=== PATIENT | male | born 1960 | race Caucasian/White ===

== ENCOUNTER → 2016-07-28 | Day surgery (SDC) | payer BC ==
[~2016-07-28] MED LIST: BUPIVACAINE HCL PF 0.75% 30 ML VIAL ONE; IBUP-232 PO; NAPR220T95 PO; PERC10TA27 PO; PROPOFOL 200 MG/20 ML AMP IV ONE; RANI150T PO; TRIAMCINOLONE ACETONIDE 40 MG/ML VIAL I-ARTICULR ONE
--- NOTE | 2016-08-03 06:22 | M6 ---
cc: PATTI FINCH M.D. DATE 07/28/2016 DATE OF 1960 PROCEDURE Fluoroscopically guided injection bilateral lumbar facet joints (bilateral L3-4, L4-5 and L5-S1 facet joints). History and physical was completed and signed. Consent was signed. Procedure site was marked. Medications were listed and reconciled. Pain score was recorded. Allergies were noted. Time out was taken. Fluoroscopy time was recorded where applicable. Sedation was administered or directed by Dr. Finch. The patient was given oxygen. The patient was monitored by a registered nurse. Total procedure time was greater than 15 minutes. PROCEDURE NOTE IV was started. Blood pressure cuff, pulse oximeter and EKG were applied. The patient was placed in the prone position on a Godfrey table, sedated with small amounts of propofol titrated to effect. Vital signs were monitored and remained stable throughout the procedure. The lumbar area was prepped with alcohol and 10% Betadine solution and draped with sterile drapes. Fluoroscopy was used in a Luis Fernando dog view to clearly visualize the bilateral lumbar facet joints at L3-4, L4-5 and L5-S1. Separate sterile 3-1/2-inch, 25-gauge spinal needles were advanced into these joints under fluoroscopic guidance. There was negative aspiration for blood or any other type of fluid and at each location the patient was given 1 mL of Marcaine 0.75% which contained 10 mg of Kenalog. Following the procedure the patient was taken to the recovery room with stable vital signs, neurologically intact. He will be evaluated immediately and with followup to determine if he has a subjective decrease in his usual pain and a corresponding objective increase his functional capabilities. W. Deshawn Finch MD [facility]/ODALIS /8:59 AM /5:20 AM
== END | disposition home or self-care (01) ==
LOC: PHSDC 07:01
PROVIDERS: ATTEND Pain Medicine Interventional Pain Medicine
DX: M54.5 Low back pain (principal)
CPT/HCPCS: 64493; 64494; 64495; 99152; J3301

== ENCOUNTER → 2016-08-26 | Day surgery (SDC) | payer BC ==
[~2016-08-26] MED LIST changes: +LACTATED RINGER'S 1000 ML INJ 1,000 ML ONE; +LIDOCAINE 1.5%/EPINEPHrine 1:200,000 PF SOLN 30 ML AMP ONE; -PROPOFOL 200 MG/20 ML AMP IV ONE; -TRIAMCINOLONE ACETONIDE 40 MG/ML VIAL I-ARTICULR ONE; +ceFAZolin 2 GM PREMIX 50 ML ONE
== END | disposition home or self-care (01) ==
LOC: ESDC 08:26
PROVIDERS: ATTEND Orthopaedic Surgery Sports Medicine
DX: S43.52XA Sprain of left acromioclavicular joint, initial encounter (principal); Z53.9 Procedure and treatment not carried out, unspecified reason
CPT/HCPCS: J0690; J7120

== ENCOUNTER → 2016-10-14 | Day surgery (SDC) | payer BC ==
[~2016-10-14] MED LIST changes: +MIDAZOLAM HCL 5 MG/ML VIAL (1 ML) ONE; +ONDANSETRON HCL 4 MG/2 ML VIAL IV PUSH ONE; +PROPOFOL 500 MG/50 ML BTL IV ONE
--- NOTE | 2016-10-14 13:47 | MP ---
cc: ANABELL LINDA DATE OF SURGERY: 10/14/2016 PREOPERATIVE DIAGNOSIS Left shoulder osteoarthritis acromioclavicular joint. Left shoulder labral tear. Left shoulder impingement syndrome. POSTOPERATIVE DIAGNOSES Left shoulder osteoarthritis acromioclavicular joint. Left shoulder labral tear. Left shoulder impingement syndrome. PROCEDURE Left shoulder arthroscopic SLAP labral repair. Left shoulder arthroscopic subacromial decompression. Left shoulder open distal clavicle excision. SURGEON Dr. Anabell Linda TRIAGE TECHNICIAN Anabell Lui PA-C ANESTHESIA General with interscalene block. ESTIMATED BLOOD LOSS 50 cc. COMPLICATIONS None. IMPLANTS USED Arthrex. JUSTIFICATION This patient is a 56-year-old male who injured his left shoulder. He has had persistent of pain in regards to condition and failed conservative treatment. Clinical exam as well as MRI confirmed the above-named findings. The patient was counseled as to the risks, benefits and alternatives to the above-named proposed surgical procedure. He did wish to proceed with surgery. PROCEDURE IN DETAIL Written consent was obtained. The patient was identified by name. Interscalene block anesthesia was administered to the left upper extremity. The patient was taken to the operating room and general anesthesia was administered as well as two grams of IV Ancef. The patient was carefully turned to a right lateral decubitus position. An arthroscopic arm mart was gently applied to the left upper extremity. 10 pounds of traction were placed. A lateral arm roll was placed. The left shoulder was then prepped and draped using isopropyl alcohol, Hibiclens solution and DuraPrep solution. After a timeout was performed a standard posterior and anterior glenohumeral arthroscopic portal was established. There was evidence of significant labral tearing along the anterior, superior, particularly posterior portion with complete detachment off bone. 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 An arthroscopic shaver was initially used to perform extensive debridement of the labrum. Subsequently an Arthrex suture lasso was used to place a #2 FiberLink suture around the torn labrum. The superior aspect of the labrum was decorticated with a bur to prepare the site for repair. Subsequently an Arthrex 3.5 mm Bio-PushLock anchor was inserted into the glenoid for labral repair. The repair was probed and noted to have good stability and fixation. Attention was then turned to the subacromial space where there was evidence of significant impingement and bursitis. An arthroscopic shaver was introduced from a lateral portal. A subacromial decompression was performed. The shaver was used to perform extensive bursectomy. An arthroscopic bur was used to perform acromioplasty and the cautery device was used to release the coracoacromial ligament. At this point the superior aspect of the rotator cuff was examined and noted to have no evidence of high-grade or full-thickness tearing. The arthroscopic portion of the procedure had concluded at that point. Now attention was turned to the distal clavicle. A separate open longitudinal incision was made over the region of the acromioclavicular joint. A cautery device was used to release the periosteum off the region of the distal clavicle. An oscillating saw was used to resect 1 cm of distal clavicle. The wound was thoroughly irrigated with sterile saline solution. The deep periosteal layer was closed with #1 Vicryl suture, the subcutaneous layer with 2-0 Vicryl suture. The skin was closed with 3-0 Prolene. The remaining portals were closed with 3-0 Prolene. Sterile dressings were applied. The patient was placed in a sling and swathe immobilizer. He tolerated the procedure well. No intraoperative complications were noted. Anabell Lui, physician anesthesiology physician assistant certified, was present during the entire procedure to include patient positioning and the procedure itself. The medical necessity of the physician anesthesiology physician assistant was indicated in this case due to the complexity of the procedure. He assisted with appropriate manipulation of the arm and also manipulation of the camera. He assisted with shuttling of sutures and also implantation of the suture anchor for purpose of labral repair. He assisted with the open distal clavicle excision to include retraction exposure, excision and closure. MD MARIANO Carter/SUZIE /9:47 AM /1:24 PM
== END | disposition home or self-care (01) ==
LOC: ESDC 06:53
PROVIDERS: ATTEND Orthopaedic Surgery Sports Medicine
DX: S43.432A Superior glenoid labrum lesion of left shoulder, initial encounter (principal); M19.012 Primary osteoarthritis, left shoulder; M75.42 Impingement syndrome of left shoulder
CPT/HCPCS: 00450; 01630; 01991; 23120; 29807; 29826; 64417; C1713; J0690; J2250; J2405; J7120

== ENCOUNTER 2016-11-30 13:37 | Day surgery (SDC) | payer BC ==
[~2016-11-30] VITALS: Ht 185.4 cm; Wt 86.0 kg
[~2016-11-30 13:37] MED LIST changes: -BUPIVACAINE HCL PF 0.75% 30 ML VIAL ONE; -LACTATED RINGER'S 1000 ML INJ 1,000 ML ONE; -LIDOCAINE 1.5%/EPINEPHrine 1:200,000 PF SOLN 30 ML AMP ONE; -MIDAZOLAM HCL 5 MG/ML VIAL (1 ML) ONE; -NAPR220T95 PO; -ONDANSETRON HCL 4 MG/2 ML VIAL IV PUSH ONE; -PROPOFOL 500 MG/50 ML BTL IV ONE; -ceFAZolin 2 GM PREMIX 50 ML ONE
[2016-11-30 14:13] VITALS: BP 143/96; PULSE 95; RESP 18; TEMP 98.2; O2SAT 97
[2016-11-30] MEDS ORDERED: ceFAZolin 2 GM PREMIX 50 ML ONE (15:03)
[2016-11-30] MEDS ORDERED: PROPOFOL 200 MG/20 ML AMP IV ONE (15:06)
[2016-11-30] MEDS ORDERED: POVIDONE IODINE 5% (ANTISEPSIS KIT) 4 APPLICATIONS EACH NARE PRN (15:15)
[2016-11-30] MEDS ORDERED: CHLORHEXIDINE GLUCONATE 2 % 1 PACK (2 CLOTHS) TOPICAL PRN (15:15)
[2016-11-30] MEDS ORDERED: LACTATED RINGER'S 1000 ML IV PRN (15:15)
[2016-11-30] MEDS ORDERED: POVIDONE IODINE 7.5% SCRUB 118 ML BOTTLE TOPICAL SCH (15:15)
[2016-11-30] MEDS ORDERED: METOPROLOL TARTRATE 25 MG TAB PO PRN (15:15)
[2016-11-30] MEDS ORDERED: SODIUM CHLORID 0.9% 500 ML IV PRN (15:15)
[2016-11-30] MEDS ORDERED: ceFAZolin 2 GM PREMIX 50 ML IV SCH (15:15)
[2016-11-30] MEDS ORDERED: INSULIN HUMAN REGULAR 1,000 UNITS/10 ML VIAL SQ PRN (15:15)
[2016-11-30] MEDS ORDERED: CHLORHEXIDINE GLUCONATE 4% SOLN 120 ML BTL TOPICAL SCH (15:15)
[2016-11-30] MEDS ORDERED: BUPIVACAINE HCL PF 0.5% 30 ML VIAL ONE (15:51)
--- NOTE | 2016-11-30 16:21 | EKG ---
Date Performed: 11/30/2016 Time Performed: 14:27:57 PTAGE: 56 years EKG: Sinus rhythm NORMAL ECG NO PREVIOUS TRACING DOCTOR: Rivas Beatty Interpretating Date/Time 11/30/2016 16:20:07
[2016-11-30] MEDS ORDERED: MIDAZOLAM HCL 2 MG/2 ML VIAL ONE (16:32)
[2016-11-30] MEDS ORDERED: ACETAMINOPHEN 1000 MG/100 ML VIAL IV ONE (16:32)
[2016-11-30] MEDS ORDERED: FAMOTIDINE 20 MG/2 ML VIAL ONE (16:32)
[2016-11-30] MEDS ORDERED: LIDOCAINE 1%/EPINEPHrine 1:100,000 SOLN 30 ML VIAL INFIL ONE (17:30)
[2016-11-30 17:57] VITALS: TEMP 97.4
[2016-11-30] MEDS ORDERED: fentaNYL CITRATE 250 MCG/5 ML AMP ONE (18:04)
[2016-11-30] MEDS ORDERED: oxyCODONE/ACETAMINOPHEN 5 MG/325 MG TAB ONE (18:19)
[2016-11-30 18:30] VITALS: BP 129/81; PULSE 90; RESP 16; O2SAT 97
[2016-11-30] MEDS ORDERED: PERC5TAB12 PO (18:36)
[2016-11-30] MEDS ORDERED: DO NOT ADM ANY ANTICOAGULANT DRUGS PRN (19:45)
--- NOTE | 2016-12-01 12:58 | MP ---
cc: ANABELL LINDA M.D. DATE OF SURGERY 11/30/2016 PREOPERATIVE DIAGNOSIS Left knee medial meniscus tear. POSTOPERATIVE DIAGNOSIS Left knee medial meniscus tear. PROCEDURE Left knee arthroscopic partial medial meniscectomy. SURGEON Dr. Anabell Linda ANESTHESIA General. ESTIMATED BLOOD LOSS Less than 10 cc. TOURNIQUET TIME 0 minutes. JUSTIFICATION This patient is a 56-year male who injured his left knee. He presented with symptoms of progressive pain in the medial compartment. He failed conservative treatment. Clinical exam as well as MRI confirmed the above-named findings. The patient was counseled as to the risks and benefits to the above-named surgical procedure. He did wish to proceed with surgery. PROCEDURE IN DETAIL Written consent was obtained. The patient was identified by name, taken to the operating room, placed supine on the operating room table. General anesthesia was administered as well as 2 grams of IV Ancef. The left thigh was carefully placed in well-padded leg mart, the left lower extremity prepped and draped using as isopropyl and Hibiclens solution and DuraPrep solution. After time-out was performed, standard medial and lateral parapatellar arthroscope portal was established and the patellofemoral joint revealed minimal grade 2 chondromalacia. The medial compartment revealed a large complex tear of the posterior horn medial meniscus with a flipped fragment. An arthroscopic biter followed by an arthroscopic shaver was introduced into the medial compartment to perform partial medial meniscectomy. The meniscal rim was probed and noted to be stable. There were some areas of focal grade 2 chondromalacia along the lateral portion of the medial femoral condyle. The intercondylar notch revealed the anterior and posterior cruciate ligaments to be intact. The lateral compartment was free of meniscal pathology and chondromalacia. At the conclusion of surgical procedure 30 cc of 1% lidocaine with epinephrine was injected in the knee joint. The arthroscopic portals were closed with 3-0 nylon suture. Sterile dressings were applied. The patient tolerated the procedure well. No intraoperative complication noted. Anabell Linda MD [facility]/ODALIS /6:02 PM /12:54 PM
== END 2016-11-30 18:50 | disposition home or self-care (01) ==
LOC: HSDC 13:37
PROVIDERS: ATTEND Orthopaedic Surgery Sports Medicine
DX: S83.242A Other tear of medial meniscus, current injury, left knee, initial encounter (principal); M17.12 Unilateral primary osteoarthritis, left knee; V89.2XXA Person injured in unspecified motor-vehicle accident, traffic, initial encounter; Z01.810 Encounter for preprocedural cardiovascular examination
CPT/HCPCS: 29881; 86850; 86900; 86901; 93005; E0113; J0131; J0690; J2250; J3010